=== PATIENT | female | born 1960 | race African-American/Black ===

== ENCOUNTER 2019-06-04 12:36 | Emergency (ER) | payer MEDICAID ==
[~2019-06-04] VITALS: Ht 167.6 cm; Wt 75.0 kg
[2019-06-04 13:45] VITALS: BP 145/52
[2019-06-04] MEDS ORDERED: LIDOCAINE 5% PATCH TOP STA (15:30)
[2019-06-04] MEDS ORDERED: IBUPROFEN 800MG TABLET PO ONE (15:30)
[2019-06-04] MEDS ORDERED: ACETAMINOPHEN 500MG TABLET PO ONE (15:30)
== END 2019-06-04 19:09 | disposition home or self-care (01) ==
LOC: ER 12:36
DX: M79.672 Pain in left foot (principal); F17.210 Nicotine dependence, cigarettes, uncomplicated; Z88.0 Allergy status to penicillin
CPT/HCPCS: 73630; 99284; 99406